=== PATIENT | male | born 1975 | race Caucasian/White ===

== ENCOUNTER 2019-11-21 15:53 | Emergency (ER) | payer SELFPAY ==
[~2019-11-21] VITALS: Ht 185.4 cm; Wt 122.5 kg
[2019-11-21 17:45] LABS: Source, Urine Catheter
[2019-11-21 17:50] LABS: Bilirubin, Urine Neg (Neg); Blood, Urine 4+ (Neg); Glucose Qualitative, Urine Neg (Neg); Ketones, Urine 2+ (Neg); Leukocyte Esterase, Urine Neg (Neg); Nitrite, Urine Neg (Neg); Protein, Urine 2+ (Neg); Urobilinogen, Urine NORM (Normal)
[2019-11-21 18:09] LABS: Appearance, Urine Clear (Clear); Color, Urine Yellow (P-Yellow)
[2019-11-21 18:11] LABS: Bacteria Many /hpf; Mucus Mod (0-Heavy); Squamous Epithelial Cells Mod /hpf (Few); White Blood Cells, Urine 0-2 /hpf (0-5)
== END 2019-11-21 18:26 | disposition short-term general hospital (02) ==
LOC: ER 15:53
PROVIDERS: Physician Assistant
DX: R33.9 Retention of urine, unspecified (principal); M54.5 Low back pain
CPT/HCPCS: 81001; 87086; 99283-25

== ENCOUNTER → 2021-08-25 | Outpatient (CLI) | payer BC | LOC: LAB 18:57 → LAB SHORT 18:57 | DX: L72.3 Sebaceous cyst (principal) | CPT/HCPCS: 87070; 87075; 87077; 87147; 87186; 87205 ==